=== PATIENT | female | born 1970 | race Caucasian/White ===

== ENCOUNTER 2021-02-23 11:28 | Emergency (ER) | payer OTHER, SELFPAY ==
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
[2021-02-23 11:30] VITALS: BP 131/82; PULSE 85; RESP 16; TEMP 36.6; O2SAT 100
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
--- NOTE | 2021-02-23 13:05 | PC.NURSE ---
pt to imaging
[2021-02-23 13:40] LABS: Add Urine Microscopic? YES; Appearance Urine Cloudy (Clear); Bacteria Urine Trace /hpf; Bilirubin Urine Negative (Negative); Blood Urine 1+ (Negative); Color Urine Yellow (Yellow); Glucose Urine UA Negative (Negative); Ketones Urine Negative (Negative); Leukocyte Esterase Ur 3+ LEU/UL (Negative); Mucus Urine Rare /lpf; Nitrate Urine Negative (Negative); Protein Urine Negative (Negative); RBC Urine 21-50 /hpf (0-2); Specific Grav Ur 1.021 (1.001-1.035); Squamous Epithelial Cell Urine Many /hpf (Few); Urobilinogen Urine Negative mg/dL (<2.0); WBC Urine 51-75 /hpf
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
[2021-02-23 14:51] VITALS: BP 139/75; PULSE 72; RESP 18; O2SAT 100
== END 2021-02-23 14:52 | disposition home or self-care (01) ==
PROVIDERS: Emergency Provider Family Medicine; PCP Physician Assistant
DX: S05.11XA Contusion of eyeball and orbital tissues, right eye, initial encounter (principal); N30.00 Acute cystitis without hematuria; Y04.2XXA Assault by strike against or bumped into by another person, initial encounter
CPT/HCPCS: 70450; 71046; 81001; 87086; 87088; 99284